=== PATIENT | male | born 1990 | race Two or more races ===

== ENCOUNTER 2016-11-02 19:22 | Emergency (ER) | payer OTHER ==
[2016-11-02] MEDS ORDERED: IOPAMIDOL 300 (61%) 100 ML VIAL IV ONE (19:23)
[2016-11-02] MEDS ORDERED: LACTATED RINGERS 1,000 ML ONE (20:40)
[2016-11-02] MEDS ORDERED: MORPHINE SULFATE 4 MG/ML SYRINGE ONE (20:40)
[2016-11-02 21:00] LABS: ABSOLUTE NEUTROPHIL COUNT 4.4 K/mm3 (1.8-7.7); BASO # 0.1 K/mm3 (0.0-0.2); BASO % 0.6 % (0.2-1.0); EOS # 0.4 (0.0-0.5); EOS % 4.3 % (0.9-2.9); HEMATOCRIT 42.3 % (32.0-52.0); HEMOGLOBIN 14.2 gm/l (14.0-18.0); IMM NEUT% 0.1 % (0-1); LYMPH # 2.9 (1.0-4.8); LYMPH % 34.9 % (15-45); MEAN CELL VOLUME 90.8 fl (80.0-94.0); MEAN CORPUSCULAR HEMOGLOBIN 30.5 pg (27.0-31.0); MEAN CORPUSCULAR HGB CONC 33.6 g/dl (33.0-37.0); MEAN PLATELET VOLUME 11.4 fl (7.4-10.4); MONO # 0.5 (0.0-0.8); NEUT % 54.1 % (43-75); PLATELET COUNT 176 K/mm3 (130-400); RED CELL DISTRIBUTION WIDTH 12.2 % (11.5-14.5)
[2016-11-02] MEDS ORDERED: PROCHLORPERAZINE 5 MG/ML 2 ML VIAL ONE (21:08)
[2016-11-02 21:12] LABS: LIPASE 19 U/L (11-82)
[2016-11-02 21:26] LABS: ALB/GLOB RATIO 1.8 (>1.0); ALBUMIN 4.4 gm/dL (3.5-5.7); CALCIUM 9.6 mg/dL (8.6-10.3)
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
== END 2016-11-02 22:15 | disposition home or self-care (01) ==
LOC: ED 19:22
DX: R10.32 Left lower quadrant pain (principal); S70.11XA Contusion of right thigh, initial encounter; V23.4XXA Motorcycle driver injured in collision with car, pick-up truck or van in traffic accident, initial encounter; Y92.9 Unspecified place or not applicable
CPT/HCPCS: 83690; 85025; 82550; 80053; 71020; 74177; 96375; 99283; 96374; 96361; 99284; J0780; J2270; J7120; Q9967